=== PATIENT | female | born 1960 | race Hispanic/Latino ===

== ENCOUNTER 2017-09-21 16:28 | Emergency (ER) | payer BC ==
[~2017-09-21] VITALS: Ht 149.9 cm; Wt 74.4 kg
[2017-09-21] MEDS ORDERED: LANSOPRAZOLE30 MG PO (16:49)
[2017-09-21] MEDS ORDERED: GLUCOPHAGE500 MG PO (16:49)
[2017-09-21] MEDS ORDERED: CIPRO500 MG PO (21:42)
[2017-09-21] MEDS ORDERED: FLAGYL500 MG PO (21:42)
[2017-09-21] MEDS ORDERED: TRAMADOL HCL50 MG PO (21:42)
== END 2017-09-21 21:55 | disposition home or self-care (01) ==
LOC: ED 16:28
DX: R10.32 Left lower quadrant pain (principal); R73.03 Prediabetes; Z79.84 Long term (current) use of oral hypoglycemic drugs; Z79.899 Other long term (current) drug therapy; Z90.710 Acquired absence of both cervix and uterus; Z90.49 Acquired absence of other specified parts of digestive tract
CPT/HCPCS: 74177; 80053; 81001; 83690; 85025; 96374; 96375; 99284; J2270; J2405; Q9967

== ENCOUNTER 2025-01-11 11:52 | Emergency (ER) | payer BC ==
[~2025-01-11] VITALS: Ht 149.9 cm; Wt 78.2 kg
[~2025-01-11 11:52] MED LIST: CIPRO500 MG PO; FLAGYL500 MG PO; GLUCOPHAGE500 MG PO; LANSOPRAZOLE30 MG PO; TRAMADOL HCL50 MG PO
[2025-01-11] MEDS ORDERED: SODIUM CHLORIDE 0.9% 1,000 ML IV ONE (12:15)
[2025-01-11] MEDS ORDERED: ondansetron HCL 4 MG/2 ML VIAL IV ONE (12:15)
[2025-01-11] MEDS ORDERED: MORPHINE SULFATE 4 MG/ML VIAL IV ONE (12:15)
[2025-01-11 12:31] LABS: BASOPHILS 0.2 % (0-2); EOSINOPHILS 0.3 % (0-6); HEMATOCRIT 31.9 % (35.0-50.0); LYMPHOCYTES 9.1 % (24-44); MCH 30.8 (27-36); MCHC 34.6 g/dl (30-36); MCV 89.2 fl (81-99); NEUTROPHILS 81.4 % (39-80); PLATELET COUNT 290 K/uL (140-440); RBC 3.57 M/ul (4.3-5.7); RDW 14.1 (10.5-15.0)
[2025-01-11 12:40] LABS: BILIRUBIN, URINE NEGATIVE (negative); BLOOD/HGB, URINE TRACE-I (Negative); KETONE, URINE NEGATIVE (Negative); LEUK ESTERASE, URINE NEGATIVE (negative); NITRITE, URINE NEGATIVE (negative)
[2025-01-11 12:49] LABS: ALBUMIN 2.8 g/dL (3.4-5.0); ALBUMIN/GLOBULIN RATIO 0.6 (1.1-2.4); ANION GAP 12.8 (7-21); BILIRUBIN, TOTAL 0.4 mg/dL (0.2-1.0); BUN/CREATININE RATIO 10.34 (6.0-28.6); CALCIUM 8.6 mg/dL (8.5-10.1); CREATININE, SERUM 0.87 mg/dL (0.55-1.02); POTASSIUM 3.8 mmol/L (3.5-5.1); PROTEIN, TOTAL 7.5 g/dL (6.4-8.2)
[2025-01-11 12:56] LABS: BACTERIA, URINE NONE SEEN /hpf (negative); CASTS, URINE NONE SEEN \\lpf; COLLECTION TYPE, URINE CLEAN CATCH; CRYSTALS, URINE NONE SEEN (0-1+); EPITHELIAL CELLS, URINE SQUAMOUS 1+ /lpf (0-1+); REFLEX CULTURE, URINE No (No)
[2025-01-11] MEDS ORDERED: MACROBID 100 M100 MG PO (13:49)
[2025-01-11] MEDS ORDERED: PYRIDIUM200 MG PO (13:50)
[2025-01-11] MEDS ORDERED: ONDANSETRON ODT8 MG PO (13:50)
[2025-01-11 14:00] VITALS: BP 119/53
== END 2025-01-11 14:00 | disposition home or self-care (01) ==
LOC: ED 11:52
PROVIDERS: Family Medicine
DX: N12 Tubulo-interstitial nephritis, not specified as acute or chronic (principal)
CPT/HCPCS: 36415; 74177; 80053; 81001; 83690; 83735; 85025; 87088; 96375; 99284-25; J2270; J2405; J7030; Q9967